=== PATIENT | male | born 1985 ===

== ENCOUNTER 2019-11-12 18:36 | Emergency (ER) | payer OTHER ==
[2019-11-12] MEDS ORDERED: Ondansetron ODT 4 MG TAB ONE (18:40)
[2019-11-12] MEDS ORDERED: Acetaminophen 325 MG TAB ONE (19:24)
[2019-11-12] MEDS ORDERED: Ibuprofen 200 MG TAB ONE (19:24)
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
== END 2019-11-12 19:40 | disposition home or self-care (01) ==
LOC: BURERS 18:36
DX: S06.0X0A Concussion without loss of consciousness, initial encounter (principal); R11.0 Nausea; F41.9 Anxiety disorder, unspecified; F32.9 Major depressive disorder, single episode, unspecified; F43.10 Post-traumatic stress disorder, unspecified; V43.52XA Car driver injured in collision with other type car in traffic accident, initial encounter
CPT/HCPCS: 70460; 72125; Q0162